=== PATIENT | female | born 1960 | race Two or more races ===

== ENCOUNTER → 2016-10-19 | Outpatient (CLI) | payer BC ==
[~2016-10-19] MED LIST: BENADRYL12.5 MG/5 PO; CHILD IBUP100 MG/5 M PO; LEVOTHROID (S100 MCG PO; TOPROL XL25 MG PO
== END ==
LOC: GBCOE 09-27 08:30
DX: Z12.31 Encounter for screening mammogram for malignant neoplasm of breast (principal)
CPT/HCPCS: G0202